=== PATIENT | female | born 1995 | race Caucasian/White ===

== ENCOUNTER 2024-12-21 15:42 | Emergency (ER) | payer MEDICAID ==
[~2024-12-21] VITALS: Ht 167.6 cm; Wt 98.0 kg
[2024-12-21 16:29] LABS: CLARITY URINE CLEAR (CLEAR); COLOR URINE YELLOW (YELLOW); GLUCOSE URINE NEGATIVE (NEGATIVE); KETONES URINE NEGATIVE (NEGATIVE); LEUKOCYTE ESTERASE URINE NEGATIVE (NEGATIVE); NITRITE URINE NEGATIVE (NEGATIVE); OCCULT BLOOD URINE TRACE (NEGATIVE); PH URINE 5.5 (4.5-8.0); PROTEIN URINE NEGATIVE (NEGATIVE); SPECIFIC GRAVITY URINE 1.018 (1.005-1.030); UROBILINOGEN URINE 0.2 E.U./dL (0.2-1.0)
[2024-12-21 16:36] LABS: BASOPHILS % 0.3 % (0.0-2.0); EOSINOPHILS % 2.2 % (0.0-5.0); HEMATOCRIT. 37.7 % (36.0-48.0); HEMOGLOBIN. 12.1 g/dL (12.0-16.0); LYMPHOCYTES % 18.6 % (20.0-50.0); MEAN PLATELET VOLUME 7.7 fl (7.4-10.4); MONOCYTES % 6.5 % (2.0-8.0); NEUTROPHILS % 72.4 % (40.0-76.0); PLATELET 313 x1000/uL (130-400); RED BLOOD CELL COUNT 4.42 mill/uL (4.2-5.4); RED CELL DISTRIBUTION WIDTH 15.0 % (11.6-14.6)
[2024-12-21 16:43] LABS: *AMPHETAMINES SCREEN URINE NEGATIVE (NEGATIVE); *BARBITURATES SCREEN URINE NEGATIVE (NEGATIVE); *BENZODIAZEPINES SCREEN URINE NEGATIVE (NEGATIVE); *COCAINE SCREEN URINE NEGATIVE (NEGATIVE); CANNABINOID URINE SCREEN PRESUMPTIVE POSITIVE (NEGATIVE); METHADONE URINE SCREEN NEGATIVE (NEGATIVE); OPIATES URINE SCREEN NEGATIVE (NEGATIVE); PHENCYCLIDINE URINE SCREEN NEGATIVE (NEGATIVE)
[2024-12-21 16:44] LABS: ECSTASY MDMA SCREEN URINE CONF.TEST INDICATED (NEGATIVE)
[2024-12-21 16:48] LABS: BACTERIA URINE TRACE; RBC URINE NONE SEEN /hpf (0-2); SQUAMOUS EPITHELIAL CELL URINE FEW /lpf (RARE/1+); WBC URINE 0-2 /hpf (0-2)
[2024-12-21 16:50] LABS: CREATININE 0.8 mg/dL (0.6-1.0); UREA NITROGEN BLOOD 14 mg/dL (9-23)
[2024-12-21 16:51] LABS: ETHANOL BLOOD < 10 mg/dL (<10)
[2024-12-21 17:04] LABS: HCG SCREEN NEGATIVE
[2024-12-21] MEDS: DIPHENHYDRAMINE 50MG/ML VIAL IM ONE (17:24)
[2024-12-21] MEDS: HALOPERIDOL LACTATE 5MG/ML VIAL IM ONE (17:24)
[2024-12-21] MEDS: LORAZEPAM 2MG/ML UD SYRINGE IM NR (17:25)
[2024-12-21] MEDS: OLANZAPINE 10 MG/VIAL IM ONE (17:51)
[2024-12-21] MEDS: ONDANSETRON HCL 4MG/2ML INJ IM ONE (17:51)
[2024-12-21 18:33] VITALS: O2SAT 100
[2024-12-22 14:25] VITALS: BP 128/62; PULSE 98; RESP 18; TEMP 36.3; O2SAT 100
== END 2024-12-22 15:55 ==
LOC: ER 15:42
DX: T43.212A Poisoning by selective serotonin and norepinephrine reuptake inhibitors, intentional self-harm, initial encounter (principal); R45.851 Suicidal ideations; F41.9 Anxiety disorder, unspecified; F31.81 Bipolar II disorder; Z79.899 Other long term (current) drug therapy; Z20.822 Contact with and (suspected) exposure to COVID-19; Y92.89 Other specified places as the place of occurrence of the external cause
CPT/HCPCS: 80305; 80048; 81003; 80307; 80329; 80320; 84703; 83735; 85025; 36415; 93005; 96372; 99291; 87426; J3490; J1200; J1630; J2060; J2405; Z7610 ×2; G0480